=== PATIENT | male | born 1995 | race Caucasian/White ===

== ENCOUNTER 2023-11-30 15:58 | Emergency (ER) | payer BC ==
[~2023-11-30] VITALS: Ht 188 cm; Wt 70.3 kg
[2023-11-30 16:56] VITALS: TEMP 98.5
[2023-11-30] MEDS ORDERED: CYCL5TAB PO (20:54)
[2023-11-30 21:14] VITALS: BP 121/78; O2SAT 100
== END 2023-11-30 21:17 | disposition home or self-care (01) ==
LOC: ER 16:08
DX: R51.9 Headache, unspecified (principal); M54.2 Cervicalgia; J45.909 Unspecified asthma, uncomplicated; V89.2XXA Person injured in unspecified motor-vehicle accident, traffic, initial encounter; Y93.89 Activity, other specified; Y92.89 Other specified places as the place of occurrence of the external cause; Y99.8 Other external cause status
CPT/HCPCS: 70450-TC; 72125-TC